=== PATIENT | male | born 1965 ===

== ENCOUNTER 2017-11-23 21:29 | Emergency (ER) | payer SELFPAY ==
[~2017-11-23] VITALS: Ht 177.8 cm; Wt 81.6 kg
[2017-11-23 21:40] VITALS: BP 154/85
[2017-11-23 22:20] LABS: ANION GAP 10 mmol/L (5-15); BLOOD UREA NITROGEN 12 mg/dL (7-18); CALCIUM 8.6 MG/DL (8.5-10.1); CARBON DIOXIDE 28 MMOL/L (21-32); CHLORIDE 101 MMOL/L (98-107); CREATININE 1.8 MG/DL (0.55-1.30); POTASSIUM 3.6 MMOL/L (3.5-5.1); SODIUM 139 MMOL/L (136-145)
[2017-11-23 22:34] LABS: ALANINE AMINOTRANSFERASE 34 U/L (12-78); ALBUMIN 3.5 G/DL (3.4-5.0); ALBUMIN/GLOBULIN RATIO 0.9 (1.0-2.7); ALKALINE PHOSPHATASE 30 U/L (46-116); ASPARTATE AMINO TRANSFERASE 49 U/L (15-37); BILIRUBIN,TOTAL 0.3 MG/DL (0.2-1.0); CREATINE KINASE 1057 U/L (26-308)
[2017-11-23 22:36] LABS: BASOPHILS % (AUTO) 0.8 % (0.0-2.0); EOSINOPHILS % (AUTO) 0.4 % (0.0-3.0); HEMATOCRIT 37.1 % (42.0-52.0); HEMOGLOBIN 13.1 G/DL (14.2-18.0); LYMPHOCYTES % (AUTO) 7.7 % (20.0-45.0); MEAN CORPUSCULAR VOLUME 92 FL (80-99); MONOCYTES % (AUTO) 9.4 % (1.0-10.0); NEUTROPHILS % (AUTO) 81.8 % (45.0-75.0); PLATELET COUNT 234 K/UL (150-450); RED BLOOD COUNT 4.03 M/UL (4.70-6.10); RED CELL DISTRIBUTION WIDTH 13.5 % (11.6-14.8); WHITE BLOOD COUNT 10.4 K/UL (4.8-10.8)
[2017-11-23 22:40] VITALS: BP 160/92
[2017-11-23 23:40] VITALS: BP 165/96
[2017-11-24 00:40] VITALS: BP 152/99
[2017-11-24 01:40] VITALS: BP 158/88
[2017-11-24 02:40] VITALS: BP 157/82
--- NOTE | 2017-11-24 03:10 | Emergency Room Report ---
History of Present Illness General Chief Complaint: Overdose Source: Patient Present Illness HPI 52YOM Brought in by EMS after found unresponsive outside of [facility] on [facility] with crack pipe Patient had alleged "pinpoint pupils" but normal RR so Narcan was not given. he became very agitated, was given IV Versed. Per EMS patient also exhibited seizure-like activity Patient not cooperative with history of present illness or physical exam in ER HPI otherwise limited Allergies: Coded Allergies: No Known Allergies (Unverified , 11/23/17) Patient History Past Medical History: unable to obtain Past Surgical History: unable to obtain Pertinent Family History: unable to obtain Social History: Reports: smoking, drug use Immunizations: UTD Reviewed Nursing Documentation: PMH: Agreed, PSxH: Agreed Nursing Documentation-PMH Past Medical History: No Stated History Review of Systems All Other Systems: limited - patient not cooperative Physical Exam Vital Signs Date Time Temp Pulse Resp B/P (MAP) Pulse Ox O2 Delivery O2 Flow Rate FiO2 11/23/17 21:15 127 20 165/97 94 11/23/17 21:40 Room Air 98 11/23/17 21:40 99.2 99.2 Sp02 EP Interpretation: reviewed, normal General Appearance: normal inspection, well appearing, no apparent distress, alert, GCS 15, non-toxic, other - Agitated, combative Head: normocephalic, atraumatic Eyes: bilateral eye PERRL, bilateral eye EOMI ENT: normal ENT inspection, hearing grossly normal, normal pharynx, no angioedema, normal voice, TMs + canals normal, uvula midline, moist mucus membranes Neck: normal inspection, full range of motion, supple, thyroid normal, no meningismus, no bony tend Respiratory: normal inspection, lungs clear, normal breath sounds, no rhonchi, no respiratory distress, no retraction, no accessory muscle use, no wheezing, speaking full sentences Cardiovascular #1: regular rate, rhythm, no edema, no JVD, normal capillary refill Gastrointestinal: normal inspection, normal bowel sounds, non tender, soft, no mass, no peritonitis, non-distended, no guarding, no hernia, no pulsatile mass Genitourinary: no CVA tenderness Musculoskeletal: normal inspection, back normal, normal range of motion, no calf tenderness, pelvis stable, Martina's Sign negative Neurologic: normal inspection, alert, oriented x3, responsive, art handler III-XII nml as tested, motor strength/tone normal, cerebellar normal, normal gait, speech normal Psychiatric: normal inspection, judgement/insight normal, mood/affect normal, no suicidal/homicidal ideation, no delusions Skin: normal inspection, normal color, no rash Lymphatic: normal inspection, no adenopathy Medical Decision Making Diagnostic Impression: Primary Impression: Drug overdose Qualified Codes: T50.904A - Poisoning by unspecified drugs, medicaments and biological substances, undetermined, initial encounter Additional Impressions: Altered mental status Qualified Codes: R41.82 - Altered mental status, unspecified Cocaine abuse Marijuana abuse Seizure Rhabdomyolysis Qualified Codes: M62.82 - Rhabdomyolysis BRIT (acute kidney injury) ER Course Tonight labs consistent with mild rhabdomyolysis and brit - was given 2 L MS bolus and ER. urine tox positive for cocaine, marijuana and benzos, the latter of which was likely ministered by EMS. he slept in ER throughout the night No signs of trauma on exam Troponin negative. ECG sinus tachcyardia Unlikely ischemia d/t cocaine Patient counseled on concern for polysubstance abuse Upon re-eval, patient accusing staff of stealing his money while sitting in stretcher eating sandwich, drinking water Patient became verbally, physically threatening to me, nurses, [facility] security Hospital security called [employer] when patient was discharged as he refused to leave [employer] spoke to myself and RN in ED ER course: Patient has remained stable during ED stay. Disposition: Patient is to be discharged to home. Patient is instructed to follow up with their primary care doctor within 5 days. Strict return precautions discussed with patient such as fever, chills, worsening/severe pain, nausea, vomiting, which may indicate severe illness. Patient verbalizes understanding and agrees with plan. Please note that this Emergency Department Report was dictated using [employer] office nurse technology software, occasionally this can lead to erroneous entry secondary to interpretation by the dictation equipment EKG Diagnostic Results Rate: normal Rhythm: NSR ST Segments: no acute changes ASA given to the pt in ED: No Rhythm Strip Diag. Results EP Interpretation: yes Rate: 93 Rhythm: NSR, no PVC's, no ectopy Last Vital Signs Date Time Temp Pulse Resp B/P (MAP) Pulse Ox O2 Delivery O2 Flow Rate FiO2 11/24/17 00:40 98.9 96 15 152/99 96 Room Air 98.9 11/23/17 21:40 98 Status: improved Disposition: HOME, SELF-CARE Referrals: NOT CHOSEN IPA/,REFERRING (PCP) MARY KATE TOURE M.D. Nov 24, 2017 03:10
[2017-11-24 03:40] VITALS: BP 155/87
[2017-11-24 04:40] VITALS: BP 148/87
[2017-11-24 04:55] VITALS: BP 148/87
--- NOTE | 2017-11-24 11:37 | Diagnostic Imaging Report ---
Indication: Dyspnea Comparison: None A single view chest radiograph was obtained. Findings: There is an abnormal left paratracheal lucency in the upper mediastinum. This could be air within distended esophagus. This could be air in the mediastinum. Artifact is possible. Further evaluation is recommended. There is also a possible air-fluid level at the right lung base projected over the right heart border. Differential includes small hernia. Heart size is normal. The lung volumes are low bilaterally. Bones are unremarkable. IMPRESSION: Left paratracheal lucency, possibly artifact. Suggest further evaluation with CT for clarification.
--- NOTE | 2017-11-26 16:09 | Cardiology Report ---
APPROVED REPORT EKG Measurement Heart [id number] MA [id number] Sinus tachycardia with fusion complexes Rightward axis Borderline ECG
== END 2017-11-24 04:55 | disposition home or self-care (01) ==
LOC: EDBD 21:29 → EMR 22:00 → CANBEDREQ 11-24 03:27 → EMR 11-24 04:55
DX: T50.904A Poisoning by unspecified drugs, medicaments and biological substances, undetermined, initial encounter (principal); R41.82 Altered mental status, unspecified; M62.82 Rhabdomyolysis; N17.9 Acute kidney failure, unspecified; F14.10 Cocaine abuse, uncomplicated; F12.10 Cannabis abuse, uncomplicated; R56.9 Unspecified convulsions; F17.200 Nicotine dependence, unspecified, uncomplicated; Y92.511 Restaurant or cafe as the place of occurrence of the external cause
CPT/HCPCS: 36415; 71045; 80053; 80307; 82550; 82553; 84484; 85025; 93005; 96361; 96374; 99284